=== PATIENT | female | born 1985 | race Caucasian/White ===

== ENCOUNTER 2017-09-24 06:02 | Inpatient (IN) | payer MEDICAID ==
[2017-09-24 06:11] VITALS: BMI 29.7
[2017-09-24] MEDS ORDERED: Lactated Ringer's 1,000 ML IV SCH (06:45)
--- NOTE | 2017-09-24 06:54 | OBHP ---
Datetime: 09/24/2017 06:45 IP Adm Impression: Postterm, intrauterine IP Admit Plan: Admit to unit; Initiate labor induction protocol Admit Comment, IP Provider: 32 @ 40 6/7 by EDC presents today for Induction of labor for post -term. POBHx: 2008 2012 2014 SAB x 2 TOP x 1 PGYNx: Pap: WNL PMHx: +RPR, PSHX: negative SVE: closed/long/hi PNL: GBS- A/P: [id number]@ 40+ presents today for IOL for post-term 1) Induction with cervidil Pelvic Type - PN: Adequate Extremities - PN: Normal Abdomen - PN: Normal Back - PN: Normal Breast - PN: Normal Lungs - PN: Normal Heart - PN: Normal Thyroid - PN: Normal Neurologic - PN: Normal HEENT - PN: Normal General - PN: Normal FHR - Baseline A Provider: 150s Contraction Comments Provider: none Comments, ACOG Physical Exam: SVE: closed/long/hi Gestation - Est Wks by US: 40+ IP Hx Assessment: The History has been Reviewed and is Current EGA AdmitDate IP: 40.6 Vital Signs Provider: Reviewed IP Indication for Induction: Postterm IP Chief Complaint: Scheduled induction of labor NICHD Variability Prov Fetus A: moderate NICHD Accel Fetus A IP Provider: 15X15 Dilatation, Provider: 0 Effacement, Provider: 0 Station, Provider: -3 Genitourinary Exam: Normal DTRs - PN: Normal
[2017-09-24 07:21] LABS: BASO % 0.3 % (0.0-2.0); EOS # 0.1 K/uL (0.0-0.7); EOS % 0.8 % (0.0-4.0); HEMOGLOBIN 11.1 g/dL (11.0-16.0); LYMPH # 1.8 K/uL (1.0-4.3); LYMPH % 20.6 % (20.0-40.0); MEAN CELL VOLUME 83.5 fL (81.0-99.0); MEAN CORPUSCULAR HEMOGLOBIN 28.5 pg (27.0-31.0); MEAN CORPUSCULAR HGB CONC 34.1 g/dL (33.0-37.0); MEAN PLATELET VOLUME 9.9 fL (7.2-11.7); MONO % 11.9 % (0.0-10.0); NEUT # 5.7 K/uL (1.8-7.0); NEUT % 66.4 % (50.0-75.0); NRBC % 0.1 % (0.0-2.0); RBC 3.91 Mil/uL (3.80-5.20); RED CELL DISTRIBUTION WIDTH 15.1 % (11.5-14.5); WHITE BLOOD COUNT 8.6 K/uL (4.8-10.8)
[2017-09-24 07:34] LABS: SQUAMOUS EPITHIAL 6 /hpf (0-5); URINE BILIRUBIN NEGATIVE (NEGATIVE); URINE BLOOD NEGATIVE (NEGATIVE); URINE CLARITY Hazy (Clear); URINE COLOR Yellow (YELLOW); URINE GLUCOSE (UA) NORMAL (Normal); URINE LEUKOCYTE ESTERASE 1+ Leu/uL (Negative); URINE PROTEIN 1+ mg/dL (NEGATIVE); URINE UROBILINOGEN NORMAL mg/dL (0.2-1.0)
[2017-09-24 07:44] LABS: BLOOD UREA NITROGEN 9 mg/dL (7-17); CALCIUM 8.6 mg/dl (8.6-10.4); GFR AFRICAN-AMERICAN > 60; GFR NON-AFRICAN AMERICAN > 60
[2017-09-24] MEDS ORDERED: Fentanyl/Bupivacaine HCl 250 ML EPI ONE (08:14)
[2017-09-24] MEDS ORDERED: Oxytocin 30 UNIT 30 UNITS/500 ML BAG IV ONE (12:10)
[2017-09-24] MEDS ORDERED: Oxytocin 30 UNIT 30 UNITS/500 ML BAG IV SCH (12:15)
--- NOTE | 2017-09-24 12:46 | OBPN ---
Datetime: 09/24/2017 12:24 IP Progress Impression: Normal progression of labor; Reassuring heart rate IP Progress Note Comment: Patient seen and examined at bedside. Patient is s/p Cytotec x 1 and Epidu ral. At this time she denies feeling any contractions and she is resting comfortably. VS: BP 116/77 HR 73 Gen: AAOx3 Abd: Soft, gravid SVE: /-3, membranes intact A/P: 32 year at 40w6d who is in labor -Stable, afebrile -S/P Epidural -S/P Cytotec 50mcg PO x 1 dose - status is reassuring -Will start pitocin for augmentation -Continue present management -Plan discussed with Dr Tiburcio Preston PGY-1 Attending Note: I was present during the above encounter. I agree with the above as documented. Datetime: 09/24/2017 07:24 IP Progress Impression Other: Latent phase of labor IP Procedures: Sterile Vag Exam IP Progress Plan: Cervical Ripening; Anticipate Vaginal Delivery Membranes, Provider: Intact Contraction Comments Provider: irregular FHR - Baseline A Provider: 140 Gestation - Est Wks by US: 40w 6d Presentation-Admit: Vertex Vital Signs Provider: Reviewed; Within Normal Limits NICHD Accel Fetus A IP Provider: 15X15 FHR Category Provider Fetus A: Category I NICHD Variability Prov Fetus A: Moderate 6-25bpm Dilatation, Provider: 3 Effacement, Provider: 50 Station, Provider: -3 NICHD Decel Fetus A IP Provider: None
--- NOTE | 2017-09-24 12:53 | OBPN ---
Datetime: 09/24/2017 07:24 IP Progress Note Comment: Patient received in bed, LDR#2 - patient i ngood spirits. (+) AFM; denies LOF or Ctx Cervical exam: as above. Assessment: 32 y.o. P3, 40w 6d, admitted for delivery. GBS (-). Catgory 1 tracing. D/W patient: cervical ripening; possible pitocin. Also, D/W epidural - patient desires. Clinically stable. Plan: 1) Cytotec 50 micrograms p.o. x 1 now 2) Anesthesia, upon request 3) Anticipate vaginal delivery
[2017-09-24 16:33] LABS: RAPID PLASMA REAGIN REACTIVE (NONREACTIVE)
[2017-09-24] MEDS ORDERED: Lidocaine 2% MPF (5 ml) Inj ONE ×2 (18:37→18:39)
[2017-09-24] MEDS ORDERED: Benzocaine/Menthol 20%-0.5% Topical Spray (60 ml) TOP PRN (18:58)
--- NOTE | 2017-09-24 19:24 | OBDS ---
DELIVERY PERSONNEL Delivery Doctor: Earl Dey MD Scrub Nurse: Lia Akers Assembler Musical Instruments: Stacy Strong RN Anesthesiologist: Dr.Jeffrey Carlos Resident: Carmita MarinoO MATERNAL INFORMATION Delivery Anesthesia: Epidural Medications in Delivery: Pitocin 30units in 500NS IV; Lidocaine 2% locally Estimated Blood Loss (ml): 250 Placenta Cultured: No Maternal Complications: None Provider Comments: This G6 now P4 delivered a viable male via over 2nd degree perineal l aceration on 09/24 at 1820 hours. No nuchal cord was noted. The 's shoulders and body were deliv ered atraumatically was placed on mother's abdomen.The cord was clamped and cut. 's richie th and nose were suctioned with bulb syringe. Cord blood was collected and sent to the lab. An intact placenta with 3VC was delivered. EBL 250cc. The second degree perineal laceration was repaired with anatomic reapproximation with 2-0 and 3-0 chromic suture. The left labial laceration was repaired wit h 3-0 chromic suture. The weighed 7lbs 9oz with APGARS of 9 and 9. Mom and baby are recovering in stable condition. All instruments and sponge counts were correct. Dr Dey was present for enti re delivery. Ora Preston DO PGY-1 Attending Note:I was present for and participated in the entire procedure. I agree with events as described above. LABOR SUMMARY EDC: 09/18/2017 00:00 No. Babies in Womb: 1 Attempted: No Labor Anesthesia: Epidural LABOR INFORMATION Reason for Induction: Postterm Onset of Labor: 09/24/2017 08:10 Complete Dilatation: 09/24/2017 16:58 Cervical Ripening Agents: Cytotec @ (Annotations: Cytotec 50mcg PO x 1 dose) Oxytocin: Augmentation Group B Beta Strep: Negative (Annotations: 09/20/17) Antibiotics # of Doses: 0 Antibiotics Time of Last Dose: 0 Steroids Given: None Reason Steroids Not Administered: Not Applicable MEMBRANES Membranes Rupture Method: Artificial Rupture of Membranes: 09/24/2017 16:58 Length of Rupture (hrs): 1.37 Amniotic Fluid Color: Clear Amniotic Fluid Amount: Small Amniotic Fluid Odor: Normal STAGES OF LABOR Stage 1 hrs: 8 Stage 1 min: 48 Stage 2 hrs: 1 Stage 2 min: 22 Stage 3 hrs: 0 Stage 3 min: 10 Total Time in Labor hrs: 10 Total Time in Labor min: 20 VAGINAL DELIVERY Episiotomy: None Laceration Extension: Second Degree Laceration Type: Perineal Other Laceration: 1st degree left labial Laceration Repair: Yes Laceration Repair Note: 3-0 chromic on labia - running nterlocking 2-0 and 2-0 chromic on perineum - usual fashion. Hemostasis assured. patient tolerated procedure well. Initial Vag Sponge Count: 10 Final Vag Sponge Count: 10 Initial Vag Sharps Count: 2 Final Vag Sharps Count: 2 Sponge Count Correct: Yes; Vaginal Sweep Performed Sharps Count Correct: Yes Count Comment: plus 1 needle. BABY A INFORMATION Delivery Date/Time: 09/24/2017 18:20 Method of Delivery: Vaginal Born in Route : No : N/A Forceps: N/A Vacuum Extraction: N/A Shoulder Dystocia : No SHOULDER DYSTOCIA BABY A Infant Delivery Date/Time: 09/24/2017 18:20 PRESENTATION/POSITION BABY A Presentation: Cephalic Cephalic Presentation: Vertex Vertex Position: Right Occipital Posterior Breech Presentation: N/A PLACENTA INFORMATION BABY A Placenta Delivery Time : 09/24/2017 18:30 Placenta Method of Delivery: Spontaneous Placenta Status: Delivered SCORES BABY A Heart Rate 1 min: >100 bpm Resp Effort 1 min: Good Cry Reflex Irritability 1 min: Cough or Sneeze or Pulls Away Muscle Tone 1 min: Active Motion Color 1 min: Body Chase, Extremities Blue Resuscitation Effort 1 min: N/A SCORE 1 MIN: 9 Heart Rate 5 min: >100 bpm Resp Effort 5 min: Good Cry Reflex Irritability 5 min: Cough or Sneeze or Pulls Away Muscle Tone 5 min: Active Motion Color 5 min: Body Chase, Extremities Blue Resuscitation Effort 5 min: N/A SCORE 5 MIN: 9 INFANT INFORMATION BABY A Gestational Age at Delivery: 40.6 Gestational Status: Term Outcome : Liveborn Infant Condition : Stable Infant Sex: Male IDENTIFICATION/MEDS BABY A ID Band Number: [id number] ID Band Location: Left Leg; Left Arm Sensor Applied: Yes Sensor Number: [id number] Sensor Location : Cord Clamp WEIGHT/LENGTH BABY A Birthweight (gms): 3430 Infant Weight (lb): 7 Infant Weight (oz): 9 Infant Length Inches: 20.00 Length cms: 50.8 CORD INFORMATION BABY A No. Cord Vessels: 3 Nuchal Cord : N/A Cord Blood Taken: Yes Infant Suction: Mouth; Nose ASSESSMENT BABY A Infant Complications: None Physical Findings at Delivery: Within Normal Limits Physical Findings Other: Baby Vital Signs @1845 T=98.6 HR= 150 RR=48 H0rsedfavfxk= 97%. Nursery Zhane se Ella Manjarrez RN regarding the Hx of mother, especially RPR positive with 1:1 ratio. m hilario aware as well regardin the RPR positive. Infant Respirations: Appears Normal Care By: Transferred To: [facility]
[2017-09-24] MEDS ORDERED: Bupivacaine HCl 0.25% PF (30 ml) Inj ONE (19:25)
[2017-09-24] MEDS: Oxycodone/Acetaminophen 5/325 mg Tab PO PRN (22:09)
[2017-09-25] MEDS: Oxycodone/Acetaminophen 5/325 mg Tab PO PRN (03:07)
[2017-09-25 07:46] VITALS: O2SAT 96
--- NOTE | 2017-09-25 07:59 | OBPPN ---
Datetime: 09/25/2017 07:53 PP Pain Prov: Within normal limits PP Nausea Prov: Denies PP Flatus Prov: Yes PP BM Prov: No PP Breasts Prov: Normal PP Heart Prov: Normal PP Lungs Prov: Normal PP Abdomen/Uterus Prov: Normal PP Lochia Prov: Normal PP Vulva/Perineum Prov: Normal PP CVA Tenderness Prov: Normal PP Extremities Prov: Normal PP Impression Prov: Normal progression PP Plan Prov: Continue present management PP Progress Note Prov: PT doing well. Pain 5/10, passing flatus. Tolerating PO diet. Denies N/V. Min imal lochia PE: Fundus firm. ext: no edema. A/P [id number] @ 40 6/7 s/p . PPD#1 1) Vitals stable, afebrile 2) Pain controlled with pain meds. 3) encouraged ambulation. 4) Circumcision: pending per peds clearance. 5) Routine PP care. IP PP Procedures: None Vital Signs Provider PP: Reviewed
[2017-09-25 08:47] LABS: BASO % 0.2 % (0.0-2.0); EOS # 0.1 K/uL (0.0-0.7); EOS % 0.5 % (0.0-4.0); HEMOGLOBIN 9.5 g/dL (11.0-16.0); LYMPH # 1.6 K/uL (1.0-4.3); LYMPH % 16.7 % (20.0-40.0); MEAN CELL VOLUME 84.4 fL (81.0-99.0); MEAN CORPUSCULAR HEMOGLOBIN 28.9 pg (27.0-31.0); MEAN CORPUSCULAR HGB CONC 34.3 g/dL (33.0-37.0); MONO # 1.1 K/uL (0.0-0.8); MONO % 11.8 % (0.0-10.0); NEUT # 6.7 K/uL (1.8-7.0); NEUT % 70.8 % (50.0-75.0); NRBC % 0.1 % (0.0-2.0); RBC 3.28 Mil/uL (3.80-5.20); RED CELL DISTRIBUTION WIDTH 15.3 % (11.5-14.5); WHITE BLOOD COUNT 9.4 K/uL (4.8-10.8)
--- NOTE | 2017-09-25 12:12 | NBCIR ---
Datetime: 09/24/2017 06:18 Preformed by:: avtarember greene Circumcision Request: Yes Consent Signed: Written Consent Signed and on Chart Circumcision Time Out: Correct Patient Identity; Correct Side and Site are Marked; Accurate Procedur e Consent Form; Agreement on Procedure to be Done; Correct Patient Position; Relevant Images and Resu lts are Properly Labeled and Displayed Circumcision Date/Time: 09/25/2017 12:07 Block/Anesthestics: Emla Cream Equipment Used: Gomco Clamp Shahid Size: 1.1 Complications: Bleeding Status: Excellent Cosmetic Outcome; Tolerated Procedure Well; Hemostatic Parents Present: None Procedure Note: Circumcision performed with 1.1 gomco clamp. slight bleeding noted at silver nitrate stick placed on the non-hemostatic area. Hemostasis was ju dged to be excellent. Datetime: 09/22/2017 07:25 PT-NAME: CIERA ROY
[2017-09-26] MEDS: Oxycodone/Acetaminophen 5/325 mg Tab PO PRN (04:52)
[2017-09-26 07:39] VITALS: BP 108/67; PULSE 72; RESP 18; TEMP 99.2
== END 2017-09-26 13:05 | disposition home or self-care (01) | DRG 373 ==
LOC: C.4D 06:02 → C.4M 21:00
PROVIDERS: ADMIT Obstetrics & Gynecology; ATTEND Obstetrics & Gynecology
PROC: 10E0XZZ Delivery of Products of Conception, External Approach (ICD-10-PCS; principal; 2017-09-24)
PROC: 3E0P7VZ Introduction of Hormone into Female Reproductive, Via Natural or Artificial Opening (ICD-10-PCS; 2017-09-24)
PROC: 10907ZC Drainage of Amniotic Fluid, Therapeutic from Products of Conception, Via Natural or Artificial Opening (ICD-10-PCS; 2017-09-24)
PROC: 0KQM0ZZ Repair Perineum Muscle, Open Approach (ICD-10-PCS; 2017-09-24)
DX: O48.0 Post-term pregnancy (principal); O70.1 Second degree perineal laceration during delivery; Z3A.40 40 weeks gestation of pregnancy; Z37.0 Single live birth